=== PATIENT | female | born 1945 | race Caucasian/White ===

== ENCOUNTER 2023-08-09 01:01 | Inpatient (IN) | payer MEDICARE, OTHER ==
[~2023-08-09] VITALS: Ht 167.6 cm; Wt 81.0 kg
[~2023-08-09 01:01] MED LIST: AMLO1TAB23 PO; ASPI-325 PO; ATOR10TA52 PO; ATOR20TA50 PO; CARV-216 PO; CARV25TA55 PO; GLIP2.5T9 PO; HYDR12.59 PO; LOSA-534 PO; LOSA-535 PO; METF-370 PO; OMEP20TA PO; POTA-36 PO
[2023-08-09] MEDS: ONDANSETRON HCL 4 MG/2 ML VIAL IV ONE (01:08)
[2023-08-09 01:10] VITALS: PULSE 75; RESP 26; O2SAT 95
[2023-08-09] MEDS: ONDANSETRON HCL 4 MG/2 ML VIAL ONE (01:11)
[2023-08-09 01:33] LABS: Basophils # (auto) 0.1 10 ^3/uL (0-0.2); Basophils % (auto) 0.6 % (0.0-2.0); Eosinophils # (auto) 0.3 10 ^3/uL (0-0.8); Eosinophils % (auto) 2.6 % (0.0-7.0); Hematocrit 37.7 % (36.0-46.0); Hemoglobin 11.7 g/dL (12.2-16.2); Lymphocytes # (auto) 2.1 10 ^3/uL (0.4-5.4); Lymphocytes % (auto) 21.2 % (10.0-50.0); Mean Corpuscular Volume 90.2 fL (80.0-100.0); Monocytes # (auto) 0.6 10 ^3/uL (0-1.3); Monocytes % (auto) 5.8 % (0.0-12.0); Neutrophils % (auto) 69.8 % (37.0-80.0); Nucleated Red Blood Cells % 0.1 %; Red Blood Cells 4.18 10^6/uL (4.0-5.20); Red Cell Distribution Width 15.9 % (11.8-14.3); White Blood Cell 10.1 10^3/uL (4.4-10.8)
[2023-08-09 01:39] LABS: Base Excess -3.1 mmol/L (-2.0-2.0)
[2023-08-09 01:41] LABS: Chloride 106 mmol/L (98-107); Sodium 138 mmol/L (136-145)
[2023-08-09 01:42] LABS: Anion Gap 10 (5-15); Calcium 8.9 mg/dL (8.7-10.4); Carbon Dioxide 22 mmol/L (20-30); Potassium 4.5 mmol/L (3.5-5.1)
[2023-08-09 01:47] LABS: Glucose 225 mg/dL (74-106)
[2023-08-09 02:10] LABS: Blood Urea Nitrogen 17 mg/dL (9-23)
[2023-08-09] MEDS: FUROSEMIDE 100 MG/10ML VIAL IV ONE (02:38)
[2023-08-09 04:23] VITALS: BP 138/57; PULSE 70; RESP 20; TEMP 98.4; O2SAT 95
[2023-08-09 06:45] LABS: Basophils # (auto) 0.1 10 ^3/uL (0-0.2); Basophils % (auto) 0.7 % (0.0-2.0); Eosinophils # (auto) 0.1 10 ^3/uL (0-0.8); Eosinophils % (auto) 0.8 % (0.0-7.0); Hemoglobin 11.6 g/dL (12.2-16.2); Lymphocytes # (auto) 1.2 10 ^3/uL (0.4-5.4); Lymphocytes % (auto) 11.6 % (10.0-50.0); Mean Corpuscular Hemoglobin 27.6 pg (28.0-32.0); Mean Corpuscular Hgb Conc. 31.3 g/dL (32.0-36.0); Mean Corpuscular Volume 88.3 fL (80.0-100.0); Monocytes # (auto) 0.5 10 ^3/uL (0-1.3); Monocytes % (auto) 5.1 % (0.0-12.0); Neutrophils # (auto) 8.3 10 ^3/uL (1.6-8.6); Neutrophils % (auto) 81.8 % (37.0-80.0); Nucleated Red Blood Cells % 0.1 %; Red Blood Cells 4.19 10^6/uL (4.0-5.20); Red Cell Distribution Width 15.3 % (11.8-14.3); White Blood Cell 10.1 10^3/uL (4.4-10.8)
[2023-08-09] MEDS ORDERED: ACETAMINOPHEN 325 MG TAB PO PRN (06:45)
[2023-08-09] MEDS ORDERED: DEXTROSE (50%) 50ML SYRG IV PRN (06:45)
[2023-08-09] MEDS ORDERED: DOCUSATE SOD 100 MG CAP PO PRN (06:45)
[2023-08-09] MEDS ORDERED: HYDROcodone-ACET 5/325MG TAB PO PRN (06:45)
[2023-08-09] MEDS ORDERED: ONDANSETRON HCL 4 MG/2 ML VIAL IV PRN (06:45)
[2023-08-09] MEDS: InsuLIN REG 1unit/0.01ml Soln (100units/ml) SC SCH ×2 (07:00→21:43)
[2023-08-09] MEDS: ACCU-CHEK COMFORT CURVE STRIP VI SCH (07:06)
[2023-08-09] MEDS: ASPirin 81 mg TAB PO ONE (07:09)
[2023-08-09] MEDS ORDERED: NITROGLYCERIN 0.4 MG SL TAB SL PRN (07:15)
[2023-08-09] MEDS ORDERED: MORPHINE SULFATE INJ 2 MG/ml SYRG IV PRN (07:15)
[2023-08-09 08:00] VITALS: PULSE 74; RESP 17; O2SAT 95
[2023-08-09 08:11] LABS: Alanine Aminotransferase 14 U/L (7-40); Albumin 4.1 g/dL (3.2-4.8); Alkaline Phosphatase 78 U/L (46-116); Anion Gap 13 (5-15); Aspartate Aminotransferase 16 U/L (13-40); BUN/Creatinine Ratio 19.5 (10.0-20.0); Blood Urea Nitrogen 17 mg/dL (9-23); Calcium 9.8 mg/dL (8.5-10.1); Carbon Dioxide 20 mmol/L (20-30); Chloride 107 mmol/L (98-107); Glucose 158 mg/dL (74-106); Potassium 4.2 mmol/L (3.5-5.1); Sodium 140 mmol/L (136-145)
[2023-08-09 08:12] LABS: Bilirubin, Total 0.5 mg/dL (0.2-1.0)
[2023-08-09] MEDS: ASPirin 81 mg TAB PO SCH (10:58)
[2023-08-09] MEDS: FUROSEMIDE 40 MG/4 ML VIAL IV SCH (10:58)
[2023-08-09] MEDS: SODIUM CHLOR 0.9% PF (SALINE LOCK) 10ML VIAL/SYR IV SCH (14:31)
[2023-08-09] MEDS ORDERED: ALBUTEROL SULF 2.5 MG/0.5ML(0.5%) NEB SOLN NEB PRN (21:15)
[2023-08-09] MEDS ORDERED: IPRATROPIUM BROM 0.5 MG/2.5ML INH SOL NEB PRN (21:15)
[2023-08-09] MEDS: ATORVASTATIN 20 MG TAB PO SCH (21:43)
[2023-08-10] VITALS (12 sets, daily range): BP systolic 124–148; BP diastolic 45–72; PULSE 36–78; RESP 16–20; TEMP 97.8–98.6; O2SAT 96–100
[2023-08-10] MEDS ORDERED: HYDR25TA87 PO (03:26)
[2023-08-10] MEDS ORDERED: HYDR25TA4 PO (03:26)
[2023-08-10] MEDS ORDERED: METF-370 PO (03:26)
[2023-08-10] MEDS ORDERED: ATOR20TA50 PO (03:26)
[2023-08-10] MEDS ORDERED: OMEP1CAP70 PO (03:26)
[2023-08-10 06:32] LABS: Basophils # (auto) 0 10 ^3/uL (0-0.2); Basophils % (auto) 0.7 % (0.0-2.0); Eosinophils # (auto) 0.2 10 ^3/uL (0-0.8); Eosinophils % (auto) 3.3 % (0.0-7.0); Hematocrit 32.7 % (36.0-46.0); Hemoglobin 10.3 g/dL (12.2-16.2); Lymphocytes # (auto) 1.6 10 ^3/uL (0.4-5.4); Lymphocytes % (auto) 27.5 % (10.0-50.0); Mean Corpuscular Hemoglobin 27.7 pg (28.0-32.0); Mean Corpuscular Hgb Conc. 31.6 g/dL (32.0-36.0); Mean Corpuscular Volume 87.6 fL (80.0-100.0); Monocytes # (auto) 0.6 10 ^3/uL (0-1.3); Monocytes % (auto) 9.9 % (0.0-12.0); Neutrophils # (auto) 3.5 10 ^3/uL (1.6-8.6); Neutrophils % (auto) 58.6 % (37.0-80.0); Nucleated Red Blood Cells % 0.2 %; Red Blood Cells 3.73 10^6/uL (4.0-5.20); Red Cell Distribution Width 15.1 % (11.8-14.3); White Blood Cell 5.9 10^3/uL (4.4-10.8)
[2023-08-10 07:01] LABS: Alanine Aminotransferase 18 U/L (7-40); Albumin 3.5 g/dL (3.2-4.8); Alkaline Phosphatase 64 U/L (46-116); Calcium 8.8 mg/dL (8.7-10.4); Carbon Dioxide 28 mmol/L (20-30); Chloride 106 mmol/L (98-107); Glucose 121 mg/dL (74-106)
[2023-08-10 07:02] LABS: Anion Gap 8 (5-15); Aspartate Aminotransferase 15 U/L (13-40); BUN/Creatinine Ratio 22.7 (10.0-20.0); Bilirubin, Total 0.5 mg/dL (0.2-1.0); Blood Urea Nitrogen 17 mg/dL (9-23); Potassium 3.5 mmol/L (3.5-5.1); Sodium 142 mmol/L (136-145)
[2023-08-11] VITALS (10 sets, daily range): BP systolic 127–148; BP diastolic 50–62; PULSE 60–98; RESP 18–20; TEMP 98–98.6; O2SAT 90–99
[2023-08-12] VITALS (8 sets, daily range): BP systolic 140–153; BP diastolic 68–72; PULSE 78–90; RESP 18–20; TEMP 36.9; O2SAT 91–93
[2023-08-12] MEDS ORDERED: LEVO500T91 PO (13:00)
[2023-08-12] MEDS ORDERED: ALBUAER3 IN (13:00)
== END 2023-08-12 15:54 | disposition home or self-care (01) | DRG 280 ==
LOC: EDBD 01:01 → ER 01:01 → OVERFLOW 07:11 → TELE-WESTW 08-10 02:40
PROVIDERS: ADMIT Nurse Practitioner Family; ATTEND Family Medicine
PROC: 5A09357 Assistance with Respiratory Ventilation, Less than 24 Consecutive Hours, Continuous Positive Airway Pressure (ICD-10-PCS; principal; 2023-08-09)
DX: I11.0 Hypertensive heart disease with heart failure (principal); I50.41 Acute combined systolic (congestive) and diastolic (congestive) heart failure; I21.A1 Myocardial infarction type 2; J96.01 Acute respiratory failure with hypoxia; J44.0 Chronic obstructive pulmonary disease with (acute) lower respiratory infection; J44.1 Chronic obstructive pulmonary disease with (acute) exacerbation; J20.9 Acute bronchitis, unspecified; I44.7 Left bundle-branch block, unspecified; E11.65 Type 2 diabetes mellitus with hyperglycemia; Z85.42 Personal history of malignant neoplasm of other parts of uterus; Z85.3 Personal history of malignant neoplasm of breast; Z79.82 Long term (current) use of aspirin; Z79.899 Other long term (current) drug therapy
CPT/HCPCS: 36415; 36600; 71045; 80048; 80053; 82805; 82962; 83036; 83605; 83880; 84484; 85025; 85379; 87040; 93005; 94660; 96374; 96375; 99291; G0378; J1815; J2405

== ENCOUNTER 2023-12-03 04:30 | Emergency (ER) | payer MEDICARE, OTHER ==
[~2023-12-03] VITALS: Ht 182.9 cm; Wt 81.7 kg
[~2023-12-03 04:30] MED LIST changes: +ALBUAER3 IN; -ATOR10TA52 PO; -CARV-216 PO; -HYDR12.59 PO; +HYDR25TA4 PO; +HYDR25TA87 PO; +LEVO500T91 PO; -LOSA-535 PO; +OMEP1CAP70 PO; -OMEP20TA PO
[2023-12-03 05:01] VITALS: PULSE 79
== END 2023-12-03 07:08 | disposition left against medical advice (07) ==
LOC: ER 04:30 → EDBD 04:30 → ER 07:08
DX: R06.02 Shortness of breath (principal); Z53.21 Procedure and treatment not carried out due to patient leaving prior to being seen by health care provider
CPT/HCPCS: 71046; 93005

== ENCOUNTER 2023-12-13 03:57 | Emergency (ER) | payer MEDICARE, OTHER ==
[~2023-12-13] VITALS: Ht 175.3 cm; Wt 63.0 kg
[2023-12-13] MEDS: IPRATROPIUM BROM 0.5 MG/2.5ML INH SOL NEB ONE (04:27)
[2023-12-13] MEDS: ALBUTEROL SULF 2.5 MG/0.5ML(0.5%) NEB SOLN NEB ONE (04:27)
[2023-12-13 04:33] LABS: Basophils # (auto) 0 10 ^3/uL (0-0.2); Basophils % (auto) 0.4 % (0.0-2.0); Eosinophils # (auto) 0.1 10 ^3/uL (0-0.8); Eosinophils % (auto) 1.7 % (0.0-7.0); Hematocrit 33.5 % (36.0-46.0); Hemoglobin 10.8 g/dL (12.2-16.2); Lymphocytes # (auto) 1.3 10 ^3/uL (0.4-5.4); Lymphocytes % (auto) 15.9 % (10.0-50.0); Mean Corpuscular Hgb Conc. 32.2 g/dL (32.0-36.0); Mean Corpuscular Volume 90.3 fL (80.0-100.0); Monocytes # (auto) 0.4 10 ^3/uL (0-1.3); Monocytes % (auto) 4.8 % (0.0-12.0); Neutrophils # (auto) 6.4 10 ^3/uL (1.6-8.6); Neutrophils % (auto) 77.2 % (37.0-80.0); Platelet Count (auto) 344 10^3/uL (140-450); Red Blood Cells 3.71 10^6/uL (4.0-5.20); Red Cell Distribution Width 15.7 % (11.8-14.3); White Blood Cell 8.3 10^3/uL (4.4-10.8)
[2023-12-13 04:49] LABS: Alanine Aminotransferase 14 U/L (7-40); Albumin 4.1 g/dL (3.2-4.8); Alkaline Phosphatase 76 U/L (46-116); Anion Gap 8 (5-15); Aspartate Aminotransferase 11 U/L (13-40); BUN/Creatinine Ratio 18.2 (10.0-20.0); Bilirubin, Total 0.7 mg/dL (0.2-1.0); Blood Urea Nitrogen 14 mg/dL (9-23); Calcium 9.1 mg/dL (8.7-10.4); Carbon Dioxide 20 mmol/L (20-30); Chloride 112 mmol/L (98-107); Glucose 135 mg/dL (74-106); Potassium 3.8 mmol/L (3.5-5.1); Sodium 140 mmol/L (136-145); Total Protein 6.7 g/dL (5.7-8.2)
[2023-12-13] MEDS: NITROGLYCERIN 2% OINT 1GM PKG TD ONE (05:03)
[2023-12-13] MEDS: FUROSEMIDE 40 MG/4 ML VIAL IV ONE (05:04)
[2023-12-13 06:00] VITALS: PULSE 82; RESP 18; O2SAT 99
[2023-12-13 06:16] LABS: Urine Bacteria None Seen /hpf (None Seen)
[2023-12-13 06:27] LABS: Urine Blood Negative /uL (Negative); Urine Clarity Clear (Clear); Urine Color Colorless (Yellow); Urine Protein, UAD Negative (Negative); Urine Specific Gravity 1.008 (1.001-1.035); Urine Urobilinogen Normal (Negative); Urine WBC 1 /hpf (0 - 5); Urine pH 5.5 (5.0-9.0)
[2023-12-13 07:59] LABS: COVID19 ANTIGEN SOFIA FIA NEGATIVE (NEGATIVE)
[2023-12-13 08:00] VITALS: PULSE 73; RESP 19; O2SAT 92
[2023-12-13 09:28] VITALS: BP 157/47; PULSE 77; RESP 22; TEMP 97.4; O2SAT 97
== END 2023-12-13 09:42 | disposition short-term general hospital (02) ==
LOC: EDBD 03:57 → ER 03:57
DX: I50.9 Heart failure, unspecified (principal); I11.0 Hypertensive heart disease with heart failure; E11.9 Type 2 diabetes mellitus without complications; Z20.822 Contact with and (suspected) exposure to COVID-19
CPT/HCPCS: 36415; 71045; 80053; 81001; 83880; 84484; 85025; 87426; 93005; 94640; 96374; 99285; J1940